=== PATIENT | female | born 1995 | race Two or more races ===

== ENCOUNTER 2018-01-13 14:27 | Emergency (ER) | payer OTHER ==
[~2018-01-13] VITALS: Ht 162.6 cm; Wt 53.0 kg
[2018-01-13 14:36] VITALS: BP 130/90
== END 2018-01-13 16:13 | disposition home or self-care (01) ==
LOC: ED 16:04
DX: S09.90XA Unspecified injury of head, initial encounter (principal); S16.1XXA Strain of muscle, fascia and tendon at neck level, initial encounter; S46.912A Strain of unspecified muscle, fascia and tendon at shoulder and upper arm level, left arm, initial encounter; S00.33XA Contusion of nose, initial encounter; V43.53XA Car driver injured in collision with pick-up truck in traffic accident, initial encounter; Y93.89 Activity, other specified; Y92.89 Other specified places as the place of occurrence of the external cause; Y99.8 Other external cause status
CPT/HCPCS: 70160; 72020; 72050; 99284